=== PATIENT | female | born 1995 ===

== ENCOUNTER 2024-02-07 14:31 | Emergency (ER) | payer MEDICAID ==
[~2024-02-07] VITALS: Ht 162.6 cm; Wt 56.8 kg
[2024-02-07] MEDS ORDERED: ALBU18HF12 IH (14:38)
[2024-02-07] MEDS ORDERED: AMOX-457 PO (16:35)
[2024-02-07] MEDS ORDERED: IBUP-1492 PO (16:35)
[2024-02-07] MEDS: AMOX TR/POT CLAV 875 MG/125 MG TABLET PO ONE (16:51)
[2024-02-07 16:57] VITALS: BP 134/62; PULSE 87; RESP 18; TEMP 98.2; O2SAT 98
== END 2024-02-07 17:00 | disposition home or self-care (01) ==
LOC: EMS 14:31
DX: K04.7 Periapical abscess without sinus (principal)
CPT/HCPCS: 87430; 99283